=== PATIENT | male | born 1960 | race Caucasian/White ===

== ENCOUNTER 2016-08-04 17:49 | Emergency (ER) | payer OTHER ==
[2016-08-04 18:01] VITALS: BP 170/93; PULSE 102; RESP 14; TEMP 98.4; O2SAT 96
[2016-08-04] MEDS ORDERED: METOCLOPRAMIDE 10 MG/2 ML VIAL IVP ONE (18:34)
[2016-08-04] MEDS ORDERED: KETOROLAC 30 MG/1 ML SDV IVP ONE (18:34)
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
[2016-08-04] MEDS ORDERED: NS 1,000 ML IV ONE (18:37)
[2016-08-04 18:43] LABS: % IMMATURE GRANULYOCYTES 0.4 % (0.0-1.1); ABSOLUTE IMMATURE GRANULOCYTES 0.02 10^3/uL (0.00-0.10); ADD DIFF? NO; ADD MORPH? NO; ADD SCAN? NO; ATYPICAL LYMPHOCYTE FLAG 60 (0-99); FRAGMENT RBC FLAG 10 (0-99); HEMOGLOBIN 18.5 g/dL (13.7-17.5); LEFT SHIFT FLG 0 (0-99); LIPEMIA HEMOLYSIS FLAG 90 (0-99); MEAN CELL HEMOGLOBIN 31.1 pg (27.9-34.1); MEAN CELL HEMOGLOBIN CONCENTR. 34.3 g/dL (32.4-36.7); MEAN CELL VOLUME 90.9 fL (81.5-99.8); MEAN PLATELET VOLUME 9.4 fL (8.7-11.7); PLATELET CLUMPS FLAG 10 (0-99); PLATELET COUNT 238 10^3/uL (150-400); RED BLOOD CELL COUNT 5.94 10^6/uL (4.40-6.38); RED CELL DISTRIBUTION WIDTH 12.4 % (11.5-15.2)
[2016-08-04 18:46] LABS: ANION GAP 15 mEq/L (8-16); CALCIUM 9.8 mg/dL (8.5-10.4); CARBON DIOXIDE 27 mEq/l (22-31); CHLORIDE 94 mEq/L (97-110); CREATININE 1.4 mg/dL (0.7-1.3); GLOMERULAR FILTRATION RATE 53; GLUCOSE 133 mg/dL (70-100); POTASSIUM 4.2 mEq/L (3.5-5.2); SODIUM 136 mEq/L (134-144)
== END 2016-08-04 20:02 | disposition home or self-care (01) ==
DX: R51 Headache (principal)
CPT/HCPCS: 96374; J1200; J1885; J2765

== ENCOUNTER 2017-01-19 12:24 | Emergency (ER) | payer OTHER ==
[2017-01-19 12:40] VITALS: RESP 16; TEMP 97.7
[2017-01-19] MEDS ORDERED: LORazepam 2 MG/ML INJ IVP ONE (12:46)
[2017-01-19] MEDS ORDERED: KETOROLAC 30 MG/1 ML SDV IVP ONE (12:46)
[2017-01-19] MEDS ORDERED: NS 1,000 ML IV ONE (12:46)
[2017-01-19] MEDS ORDERED: METOCLOPRAMIDE 10 MG/2 ML VIAL IVP ONE (12:46)
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
[2017-01-19 14:34] VITALS: BP 133/76; PULSE 71; O2SAT 97
== END 2017-01-19 14:34 | disposition home or self-care (01) ==
LOC: EDUNIT#
DX: R51 Headache (principal); M54.2 Cervicalgia; G89.29 Other chronic pain
CPT/HCPCS: 96374; J1200; J1885; J2060; J2765

== ENCOUNTER 2018-03-15 20:30 | Emergency (ER) | payer SELFPAY ==
[2018-03-15] MEDS ORDERED: NS 1,000 ML IV ONE ×2 (20:35→21:25)
--- NOTE | 2018-03-15 20:36 | EDPHY ---
H & P Time Seen by Provider: 03/15/18 20:36 HPI/ROS: HPI CHIEF COMPLAINT: Alcohol intoxication, vomiting HISTORY OF PRESENT ILLNESS: 58-year-old male, presents emergency room with acute alcohol intoxication. Presents from home. Was vomiting. The patient presents emergency room he states that he had a very long day today. He went under along psychological evaluation for his depression. He got home and felt very stressed started drinking alcohol. Patient denies suicidal ideation or homicidal ideation. He does state he has been suffering from depression. He did drink a large amount of rum this evening. He typically does not drink. He presents emergency room intoxicated with alcohol slurring his speech and vomiting. Past Medical History: Depression Past Surgical History: Denies recent surgery Social History: Occasional alcohol use. Marijuana use. No illicit drugs. Family History: Noncontributory ROS REVIEW OF SYSTEMS: 10 Systems were reviewed and negative with the exception of the elements mentioned in the history of present illness. Exam Constitutional intoxicated, smells of alcohol triage nursing summary reviewed , vital signs reviewed, awake/alert. Eyes normal conjunctivae and sclera, EOMI, PERRLA. HENT normal inspection, atraumatic, moist mucus membranes, no epistaxis, neck supple/ no meningismus, no raccoon eyes. Respiratory clear to auscultation bilaterally, normal breath sounds, no respiratory distress, no wheezing. Cardiovascular rate normal, regular rhythm, no murmur, no edema, distal pulses normal. Gastrointestinal soft, non-tender, no rebound, no guarding, normal bowel sounds, no distension, no pulsatile mass. Genitourinary no CVA tenderness. Musculoskeletal no midline vertebral tenderness, full range of motion, no calf swelling, no tenderness of extremities, no meningismus, good pulses, neurovascularly intact. Skin pink, warm, & dry, no rash, skin atraumatic. Neurologic awake, alert and oriented x 3, AAOx3, moves all 4 extremities equally, motor intact, sensory intact, CN II-XII intact, intoxicated, smells of alcohol, slurring his speech Psychiatric normal mood/affect. Heme/Lymph/Immune no lymphadenopathy. Differential Diagnosis: Includes but is not limited to in a particular order acute alcohol intoxication, dehydration, electrolyte disturbance, depression Medical Decision Making: Plan for this patient IV establishment IV fluid bolus basic electrolytes and blood work. Serum alcohol level. Monitor for worsening of condition. Monitor for sobriety. Once the patient is sober can re-evaluate. Re-evaluation: 2125: Lengthy discussion with both sons at bedside. They have no concerns about his drinking. He states that he had a long day today in got home and drank. He typically does not drink alcohol. They deny him being suicidal or severely depressed. They do feel comfortable him going home with 1 of them tonight. Serum alcohol level 165. 2224: Patient ambulated well throughout the emergency without difficulty. Stable gait. Denies any complaints this time denies SI or HI. Denies wanting to hurt himself. Contracts for safety. Signs are bedside. Like to take him home. Source: Patient, EMS - Medical/Surgical History Hx Asthma: No Hx Chronic Respiratory Disease: No Hx Diabetes: No Hx Cardiac Disease: No Hx Renal Disease: No Hx Cirrhosis: No Hx Alcoholism: No Hx HIV/AIDS: No Hx Splenectomy or Spleen Trauma: No Other PMH: psh- L shoulder/bicep tendon repair - Social History Smoking Status: Never smoked Constitutional: Initial Vital Signs Temperature (C) 36.4 C 03/15/18 20:30 Heart Rate 87 03/15/18 20:30 Respiratory Rate 16 03/15/18 20:30 Blood Pressure 120/75 03/15/18 20:30 O2 Sat (%) 93 03/15/18 20:30 O2 Delivery Mode Room Air Allergies/Adverse Reactions: No Known Allergies Allergy (Verified 08/04/16 17:57) Home Medications: Medication Instructions Recorded AMITRIPTYLINE HCL 08/04/16 Escitalopram Oxalate 01/19/17 Lexapro 03/15/18 TOPIRAMATE 03/15/18 traZODone 03/15/18 Medical Decision Making - Data Points Laboratory Results: Laboratory Results 03/15/18 20:40 03/15/18 20:40 03/15/18 03/15/18 20:40 20:40 WBC 9.32 10^3/uL 10^3/uL (3.80-9.50) RBC 4.82 10^6/uL 10^6/uL (4.40-6.38) Hgb 14.7 g/dL g/dL (13.7-17.5) Hct 43.2 % % (40.0-51.0) MCV 89.6 fL fL (81.5-99.8) MCH 30.5 pg pg (27.9-34.1) MCHC 34.0 g/dL g/dL (32.4-36.7) RDW 12.1 % % (11.5-15.2) Plt Count 370 10^3/uL 10^3/uL (150-400) MPV 9.5 fL fL (8.7-11.7) Neut % (Auto) 52.5 % % (39.3-74.2) Lymph % (Auto) 36.4 % % (15.0-45.0) [place] % (Auto) 7.9 % % (4.5-13.0) Eos % (Auto) 1.9 % % (0.6-7.6) Baso % (Auto) 1.1 % % (0.3-1.7) Nucleat RBC Rel Count 0.0 % % (0.0-0.2) Absolute Neuts (auto) 4.89 10^3/uL 10^3/uL (1.70-6.50) Absolute Lymphs (auto) 3.39 10^3/uL H 10^3/uL (1.00-3.00) Absolute Monos (auto) 0.74 10^3/uL 10^3/uL (0.30-0.80) Absolute Eos (auto) 0.18 10^3/uL 10^3/uL (0.03-0.40) Absolute Basos (auto) 0.10 10^3/uL 10^3/uL (0.02-0.10) Absolute Nucleated RBC 0.00 10^3/uL 10^3/uL (0-0.01) Immature Gran % 0.2 % % (0.0-1.1) Immature Gran # 0.02 10^3/uL 10^3/uL (0.00-0.10) Sodium 137 mEq/L mEq/L (135-145) Potassium 3.3 mEq/L mEq/L (3.3-5.0) Chloride 99 mEq/L mEq/L (97-110) Carbon Dioxide 21 mEq/l L mEq/l (22-31) Anion Gap 17 mEq/L H mEq/L (8-16) BUN 11 mg/dL mg/dL (7-23) Creatinine 1.0 mg/dL mg/dL (0.7-1.3) Estimated GFR > 60 Glucose 110 mg/dL H mg/dL (70-100) Calcium 9.9 mg/dL mg/dL (8.5-10.4) Ethyl Alcohol 165 mg/dL H mg/dL (0-10) Medications Given: Discontinued Medications Sodium Chloride (Ns) 1,000 mls @ 0 mls/hr IV ONCE ONE PRN Reason: Wide Open Stop: 03/15/18 20:36 Last Admin: 03/15/18 20:43 Dose: 1,000 mls Sodium Chloride (Ns) 1,000 mls @ 0 mls/hr IV ONCE ONE PRN Reason: Wide Open Stop: 03/15/18 21:26 Last Admin: 03/15/18 21:29 Dose: 1,000 mls Promethazine HCl (Phenergan) 6.25 mg IV EDNOW ONE Stop: 03/15/18 20:44 Last Admin: 03/15/18 20:47 Dose: 6.25 mg Departure - Departure Disposition: Home, Routine, Self-Care Clinical Impression: Alcoholic intoxication Qualifiers: Complication of substance-induced condition: uncomplicated Qualified Code(s): F10.920 - Alcohol use, unspecified with intoxication, uncomplicated Condition: Fair Instructions: Alcohol Intoxication (ED) Referrals: NONE *PRIMARY CARE P,. [Primary Care Provider] - As per Instructions
[2018-03-15] MEDS ORDERED: PROMETHAZINE HCL 25 MG/ML INJ IV ONE (20:43)
[2018-03-15 20:55] LABS: PLATELET COUNT 370 10^3/uL (150-400)
[2018-03-15 22:36] VITALS: BP 117/68
[2018-03-15] MEDS ORDERED: TAMSULOSIN HCL 0.4 MG CAP PO ONE (23:00)
== END 2018-03-15 22:35 | disposition home or self-care (01) ==
LOC: EDUNIT#
DX: F10.920 Alcohol use, unspecified with intoxication, uncomplicated (principal); Y90.6 Blood alcohol level of 120-199 mg/100 ml
CPT/HCPCS: 96374; G0480; J2550